=== PATIENT | female | born 1970 | race Caucasian/White ===

== ENCOUNTER 2020-05-25 21:58 | Emergency (ER) | payer BC ==
[~2020-05-25] VITALS: Ht 165.1 cm; Wt 77.1 kg
[2020-05-25 22:05] VITALS: BP_SYST 120
[2020-05-25 23:57] LABS: BASOPHILS # (AUTO) 0.1 K/uL (0.0-0.2); BASOPHILS % (AUTO) 0.8 % (0.0-2.0); EOSINOPHILS # (AUTO) 0.2 K/uL (0.0-0.4); EOSINOPHILS % (AUTO) 2.2 % (0.0-4.0); HEMATOCRIT 40.4 % (36-48); HEMOGLOBIN 13.5 g/dL (12.0-16.0); LYMPHOCYTES # (AUTO) 3.1 K/uL (1.0-5.5); LYMPHOCYTES % (AUTO) 39.7 % (20.5-51.5); MEAN CORPUSCULAR HEMOGLOBIN 30 pg (27-31); MEAN CORPUSCULAR HGB CONC 33 % (32-36); MEAN CORPUSCULAR VOLUME 90 fL (79.0-98.0); MONOCYTES # (AUTO) 0.6 K/uL (0.0-1.0); MONOCYTES % (AUTO) 7.5 % (1.7-9.3); NEUTROPHILS # (AUTO) 3.9 K/uL (1.8-7.7); NEUTROPHILS % (AUTO) 49.8 % (40.0-70.0); PLATELET COUNT (AUTO) 310 K/uL (130-430); RED BLOOD CELL COUNT(AUTO) 4.47 MIL/uL (4.2-6.2); WHITE BLOOD COUNT (AUTO) 7.8 K/uL (4.8-10.8)
[2020-05-26 00:06] LABS: CALCIUM 9.1 mg/dL (8.4-11.0); CREATININE 0.82 mg/dL (0.55-1.30)
[2020-05-26 00:17] LABS: ALBUMIN 3.6 g/dL (3.4-4.8); TOTAL BILIRUBIN 0.3 mg/dL (0.0-1.0)
[2020-05-26 01:09] VITALS: BP_SYST 133
[2020-05-26] MEDS: MAGNESIUM CITRATE 300 ML ORAL SOLUTION PO ONE (01:09)
== END 2020-05-26 01:09 | disposition home or self-care (01) ==
LOC: SED 21:58
DX: K59.00 Constipation, unspecified (principal)
CPT/HCPCS: 36415; 74018; 80053; 85025; 99285

== ENCOUNTER 2023-06-02 14:44 | Emergency (ER) | payer BC ==
[~2023-06-02] VITALS: Ht 165.1 cm; Wt 70.3 kg
[2023-06-02 14:45] VITALS: BP_SYST 148; PULSE 98; RESP 18; TEMP 97.8; O2SAT 100
[2023-06-02] MEDS ORDERED: NACL 0.9% 1,000 ML IV ONE (15:30)
[2023-06-02] MEDS ORDERED: LORazepam 2 MG/ML VIAL IVP ONE (15:30)
[2023-06-02] MEDS ORDERED: ZOLP5TAB2 PO (15:54)
[2023-06-02 16:14] LABS: BASOPHILS # (AUTO) 0.1 K/uL (0.0-0.2); EOSINOPHILS # (AUTO) 0.1 K/uL (0.0-0.4); EOSINOPHILS % (AUTO) 1.7 % (0.0-4.0); HEMATOCRIT 42.4 % (36-48); LYMPHOCYTES # (AUTO) 2.4 K/uL (1.0-5.5); LYMPHOCYTES % (AUTO) 31.7 % (20.5-51.5); MEAN CORPUSCULAR HEMOGLOBIN 29 pg (27-31); MEAN CORPUSCULAR HGB CONC 33 % (32-36); MEAN CORPUSCULAR VOLUME 87 fL (79.0-98.0); MONOCYTES # (AUTO) 0.6 K/uL (0.0-1.0); MONOCYTES % (AUTO) 7.9 % (1.7-9.3); NEUTROPHILS # (AUTO) 4.3 K/uL (1.8-7.7); NEUTROPHILS % (AUTO) 57.7 % (40.0-70.0); PLATELET COUNT (AUTO) 277 K/uL (130-430); RED BLOOD CELL COUNT(AUTO) 4.88 MIL/uL (4.2-6.2); RED CELL DISTRIBUTION WIDTH 14.6 % (9.0-15.0); WHITE BLOOD COUNT (AUTO) 7.5 K/uL (4.8-10.8)
[2023-06-02 16:18] LABS: POTASSIUM 3.6 mmol/L (3.5-5.1)
[2023-06-02 16:19] LABS: CALCIUM 9.5 mg/dL (8.4-11.0); CREATININE 0.65 mg/dL (0.55-1.30)
[2023-06-02 16:36] LABS: BILIRUBIN,URINE NEGATIVE (NEGATIVE); BLOOD, URINE NEGATIVE (NEGATIVE); CLARITY/URINE CLEAR (CLEAR); COLOR,URINE YELLOW (YELLOW); GLUCOSE,URINE NEGATIVE (NEGATIVE); KETONES,URINE 2+ (NEGATIVE); LEUKOCYTE ESTERASE ,URINE NEGATIVE (NEGATIVE); NITRITE, URINE NEGATIVE (NEGATIVE); PROTEIN URINE NEGATIVE (NEGATIVE); UROBILINOGEN,URINE 0.2 (0.2-1.0)
[2023-06-02 17:35] LABS: BARBITURATE, URINE NEGATIVE (NEG <=200)
[2023-06-02 17:36] LABS: BENZODIAZEPINE, URINE POSITIVE (NEG <=150); CANNABINOID, URINE POSITIVE (NEG <=50); COCAINE, URINE NEGATIVE (NEG <=150); METHAMPHETAMINES SCREEN,URINE NEGATIVE (NEG <=500); OPIATE, URINE NEGATIVE (NEG <=100); PHENCYCLIDINE SCREEN,URINE NEGATIVE (NEG <=25); UR TRICYCLIC ANTIDEPRESSANTS NEGATIVE (NEG <=300); URINE AMPHETAMINE NEGATIVE (NEG <=500); URINE METHADONE NEGATIVE (NEG <=200); URINE OXYCODONE SCREEN NEGATIVE (NEG <=100); URINE PROPOXYPHENE SCREEN NEGATIVE (NEG <=300)
[2023-06-02 18:21] VITALS: BP_SYST 130; PULSE 68; RESP 18; TEMP 98.3; O2SAT 98
== END 2023-06-02 18:21 | disposition home or self-care (01) ==
LOC: SED 14:44
DX: G47.00 Insomnia, unspecified (principal); Z79.899 Other long term (current) drug therapy
CPT/HCPCS: 99283; 96374; 96361; 80307; 80048; 85025; 36415; 81025; 81003; J2060; J7030

== ENCOUNTER 2023-08-23 21:42 | Emergency (ER) | payer BC ==
[~2023-08-23] VITALS: Ht 165.1 cm; Wt 68.0 kg
[~2023-08-23 21:42] MED LIST: ZOLP5TAB2 PO
[2023-08-23 21:48] VITALS: BP_SYST 111; PULSE 102; RESP 16; TEMP 97.8; O2SAT 100
[2023-08-23] MEDS ORDERED: DEXAMETHASONE SOD PHOSPHATE 10 MG/ML VIAL IM ONE (22:30)
[2023-08-23] MEDS ORDERED: FAMOTIDINE 20 MG TABLET PO ONE (22:30)
[2023-08-23] MEDS ORDERED: CYPR4TAB50 PO (22:48)
[2023-08-23] MEDS ORDERED: METH-776 PO (22:48)
[2023-08-23] MEDS ORDERED: FAMO40TA71 PO (22:48)
[2023-08-23 23:00] VITALS: BP_SYST 113; PULSE 98; RESP 18; TEMP 97.8; O2SAT 99
== END 2023-08-23 23:00 | disposition home or self-care (01) ==
LOC: SED 21:42
DX: L29.9 Pruritus, unspecified (principal); T45.0X5A Adverse effect of antiallergic and antiemetic drugs, initial encounter; Z79.899 Other long term (current) drug therapy; Y92.89 Other specified places as the place of occurrence of the external cause
CPT/HCPCS: 99283; 96372; J1100

== ENCOUNTER 2023-08-25 05:02 | Emergency (ER) | payer BC ==
[~2023-08-25] VITALS: Ht 165.1 cm; Wt 68.0 kg
[~2023-08-25 05:02] MED LIST changes: +CYPR4TAB50 PO; +FAMO40TA71 PO; +METH-776 PO
[2023-08-25 05:06] VITALS: BP_SYST 112; PULSE 89; RESP 16; TEMP 97.2; O2SAT 99
[2023-08-25] MEDS ORDERED: FAMOTIDINE PF 20 MG/2 ML VIAL IVP ONE (05:30)
[2023-08-25] MEDS ORDERED: methylPREDNISolone SOD SUCC/PF 62.5 MG/ML VIAL IVP ONE (05:30)
[2023-08-25] MEDS ORDERED: DIPHENHYDRAMINE INJ 50 MG/ML VIAL IVP ONE (05:30)
[2023-08-25] MEDS ORDERED: DIPHENHYDRAMINE INJ 50 MG/ML VIAL ONE (05:57)
[2023-08-25 07:32] LABS: BASOPHILS % (AUTO) 0.3 % (0.0-2.0); EOSINOPHILS % (AUTO) 0.1 % (0.0-4.0); HEMATOCRIT 38.8 % (36-48); HEMOGLOBIN 12.7 g/dL (12.0-16.0); LYMPHOCYTES # (AUTO) 1.3 K/uL (1.0-5.5); LYMPHOCYTES % (AUTO) 12.7 % (20.5-51.5); MEAN CORPUSCULAR HEMOGLOBIN 30 pg (27-31); MEAN CORPUSCULAR HGB CONC 33 % (32-36); MEAN CORPUSCULAR VOLUME 91 fL (79.0-98.0); MONOCYTES # (AUTO) 0.4 K/uL (0.0-1.0); NEUTROPHILS # (AUTO) 8.5 K/uL (1.8-7.7); NEUTROPHILS % (AUTO) 82.9 % (40.0-70.0); PLATELET COUNT (AUTO) 284 K/uL (130-430); RED BLOOD CELL COUNT(AUTO) 4.29 MIL/uL (4.2-6.2); RED CELL DISTRIBUTION WIDTH 13.2 % (9.0-15.0); WHITE BLOOD COUNT (AUTO) 10.2 K/uL (4.8-10.8)
[2023-08-25 07:43] LABS: ALBUMIN 3.5 g/dL (3.4-4.8); CALCIUM 9.1 mg/dL (8.4-11.0); CREATININE 0.6 mg/dL (0.55-1.30); POTASSIUM 4.2 mmol/L (3.5-5.1); TOTAL BILIRUBIN 0.3 mg/dL (0.0-1.0); TOTAL PROTEIN, SERUM 6.8 g/dL (6.4-8.3)
[2023-08-25 08:20] VITALS: BP_SYST 124; PULSE 76; RESP 16; TEMP 97.2; O2SAT 95
== END 2023-08-25 08:15 | disposition home or self-care (01) ==
LOC: SED 05:02
DX: Z00.00 Encounter for general adult medical examination without abnormal findings (principal); L29.9 Pruritus, unspecified; Z79.899 Other long term (current) drug therapy
CPT/HCPCS: 99284; 96374; 96375; 80053; 85025; 36415; J1200; J3490; J2930

== ENCOUNTER 2023-09-19 11:57 | Emergency (ER) | payer BC ==
[~2023-09-19] VITALS: Ht 165.1 cm; Wt 68.0 kg
[2023-09-19 12:11] VITALS: BP_SYST 130; PULSE 69; RESP 16; TEMP 97.7; O2SAT 97
[2023-09-19] MEDS ORDERED: DEXAMETHASONE SOD PHOSPHATE 10 MG/ML VIAL IM ONE (12:30)
[2023-09-19] MEDS ORDERED: CYPR4TAB50 PO (12:33)
[2023-09-19] MEDS ORDERED: FAMO40TA71 PO (12:33)
[2023-09-19 12:51] VITALS: BP_SYST 130; PULSE 69; RESP 16; TEMP 97.7; O2SAT 97
[2023-09-20 08:06] LABS: TRIIODOTHYRONINE (T3) 103 ng/dL (71-180)
[2023-09-20 09:07] LABS: THYROID PEROXIDASE (TPO) AB 9 IU/mL (0-34)
== END 2023-09-19 12:45 | disposition home or self-care (01) ==
LOC: SED 11:57
DX: L29.9 Pruritus, unspecified (principal); Z79.899 Other long term (current) drug therapy
CPT/HCPCS: 99283; 84439; 36415; 96372; 86376; 84480; J1100

== ENCOUNTER 2023-12-19 03:49 | Emergency (ER) | payer BC ==
[~2023-12-19] VITALS: Ht 165.1 cm; Wt 70.3 kg
[2023-12-19 04:08] VITALS: BP_SYST 126; PULSE 84; RESP 17; TEMP 98.7; O2SAT 97
[2023-12-19] MEDS ORDERED: methylPREDNISolone SOD SUCC/PF 62.5 MG/ML VIAL ONE (04:55)
[2023-12-19] MEDS: methylPREDNISolone SOD SUCC 500 MG/VIAL (Solu-MEDROL) IV ONE (05:12)
[2023-12-19] MEDS: LORazepam 2 MG/ML VIAL IVP ONE (05:14)
[2023-12-19] MEDS ORDERED: LORA-258 PO (05:48)
[2023-12-19 06:04] VITALS: BP_SYST 121; PULSE 78; RESP 18; TEMP 98.6; O2SAT 98
== END 2023-12-19 06:00 | disposition home or self-care (01) ==
LOC: SED 03:49
DX: L29.9 Pruritus, unspecified (principal); F41.9 Anxiety disorder, unspecified; Z79.899 Other long term (current) drug therapy
CPT/HCPCS: 99284; 96374; 96375; J2060; J2930